=== PATIENT | male | born 1970 | race African-American/Black ===

== ENCOUNTER 2018-05-23 13:48 | Emergency (ER) | payer OTHER ==
[~2018-05-23] VITALS: Ht 182.9 cm; Wt 99.2 kg
[2018-05-23 13:50] VITALS: BP 139/80
--- NOTE | 2018-05-23 14:24 | PHYS DOC ---
Past History Past Medical History: No Pertinent History Past Surgical History: Other Smoking: Cigarettes Alcohol Use: Occasionally Drug Use: None Adult General Chief Complaint Chief Complaint: FOREIGN BODY HPI HPI 48-year-old male presents to the emergency room with a splinter in his left index finger. The patient was removing baseboards at his house and got a splinter 4 days ago. He went to his PCP who got part of it out but not the rest of it. It is catching on things and annoying him. He is concerned we'll get infected. He tried to go back to his PCP and they sent him to the emergency room. Patient denies fever or chills. He has no other complaints. Review of Systems Review of Systems Constitutional: Denies fever or chills [] Eyes: Denies change in visual acuity, redness, or eye pain [] HENT: Denies nasal congestion or sore throat [] Respiratory: Denies cough or shortness of breath [] Cardiovascular: No additional information not addressed in HPI [] GI: Denies abdominal pain, nausea, vomiting, bloody stools or diarrhea [] : Denies dysuria or hematuria [] Musculoskeletal: Denies back pain or joint pain [] Integument: Splinter left index finger[] Neurologic: Denies headache, focal weakness or sensory changes [] Endocrine: Denies polyuria or polydipsia [] All other systems were reviewed and found to be within normal limits, except as documented in this note. Allergies Allergies Allergies Coded Allergies Type Severity Reaction Last Updated Verified No Known Drug Allergies 05/23/18 No Physical Exam Physical Exam Constitutional: Well developed, well nourished, no acute distress, non-toxic appearance. [] HENT: Normocephalic, atraumatic, bilateral external ears normal, oropharynx moist, no oral exudates, nose normal. [] Eyes: PERRLA, EOMI, conjunctiva normal, no discharge. [] Neck: Normal range of motion, no tenderness, supple, no stridor. [] Cardiovascular:Heart rate regular rhythm, no murmur [] Lungs & Thorax: Bilateral breath sounds clear to auscultation [] Abdomen: Bowel sounds normal, soft, no tenderness, no masses, no pulsatile masses. [] Skin: 2 mm sliver of wood in the left index finger[] Back: No tenderness, no CVA tenderness. [] Extremities: No tenderness, no cyanosis, no clubbing, ROM intact, no edema. [] Neurologic: Alert and oriented X 3, normal motor function, normal sensory function, no focal deficits noted. [] Psychologic: Affect normal, judgement normal, mood normal. [] Current Patient Data Vital Signs Vital Signs Date Time Temp Pulse Resp B/P (MAP) Pulse Ox O2 Delivery O2 Flow Rate FiO2 05/23/18 13:50 98.3 78 18 97 Room Air EKG EKG [] Radiology/Procedures Radiology/Procedures [] Course & Med Decision Making Course & Med Decision Making Pertinent Labs and Imaging studies reviewed. (See chart for details) The patient had a splinter in his left index finger. I was able to remove it with micro-Renetta's and a 30-gauge needle. There was no bleeding. There are no complications. The patient felt better after the procedure. He is stable for discharge at this time. [] Dragon Disclaimer Dragon Disclaimer This electronic medical record was generated, in whole or in part, using a voice recognition dictation system. Departure Departure: Impression: Primary Impression: Foreign body of left index finger Disposition: HOME, SELF-CARE Condition: IMPROVED Referrals: ESTEPHANIE HUITRON MD (PCP) Patient Instructions: Wood Splinters GABRIELLA FENG DO May 23, 2018 14:24
== END 2018-05-23 14:26 | disposition home or self-care (01) ==
LOC: EDBD 13:48 → ER 13:48
DX: S60.451A Superficial foreign body of left index finger, initial encounter (principal); F17.210 Nicotine dependence, cigarettes, uncomplicated; W45.8XXA Other foreign body or object entering through skin, initial encounter; Y93.89 Activity, other specified; Y92.098 Other place in other non-institutional residence as the place of occurrence of the external cause; Y99.8 Other external cause status
CPT/HCPCS: 99284